=== PATIENT | female | born 1965 | race Caucasian/White ===

== ENCOUNTER 2023-06-20 23:16 | Inpatient (IN) | payer MEDICAID ==
[~2023-06-20] VITALS: Ht 172.7 cm; Wt 72.3 kg
[2023-06-21] MEDS ORDERED: LORazepam 2 MG TABLET PO PRN (00:15)
[2023-06-21] MEDS ORDERED: HALOPERIDOL 5 MG TABLET PO PRN (00:15)
[2023-06-21] MEDS ORDERED: PNEUMOCOCCAL VACCINE POLYVALENT 0.5 ML SYRINGE [PPSV23] IM. ONE (01:30)
[2023-06-21 01:59] VITALS: BP 123/76; PULSE 60; RESP 18; TEMP 97.6
[2023-06-21] MEDS ORDERED: ALBUTEROL SULFATE HFA 90 MCG/PUFF 8 GM INHALER IH PRN (07:15)
[2023-06-21] MEDS ORDERED: MAGNESIUM HYDROXIDE SUSPENSION 30 ML UDCUP PO PRN (07:15)
[2023-06-21] MEDS ORDERED: IBUPROFEN 400 MG TABLET PO PRN (07:15)
[2023-06-21] MEDS ORDERED: ACETAMINOPHEN 325 MG TABLET PO PRN (07:15)
[2023-06-21] MEDS ORDERED: LOPERAMIDE HCL 2 MG CAPSULE PO PRN (07:15)
[2023-06-21] MEDS ORDERED: PETROLATUM,WHITE 28 GM JELLY TP PRN (07:15)
[2023-06-21] MEDS ORDERED: ONDANSETRON HCL 4 MG TABLET PO PRN (07:15)
[2023-06-21] MEDS ORDERED: GuaiFENesin/D-METHORPHAN [SUGAR-FREE] 200-20MG/10 ML SYRUP UDCUP PO PRN (07:15)
[2023-06-21] MEDS ORDERED: CloNIDine HCL 0.1 MG TABLET PO PRN (07:15)
[2023-06-21] MEDS ORDERED: DOCUSATE SODIUM 100 MG CAPSULE PO PRN (07:15)
[2023-06-21] MEDS ORDERED: MAG HYDROX/ALUMINUM HYD/SIMETH ES 30 ML SUSPENSION UDCUP PO PRN (07:15)
[2023-06-21 08:09] VITALS: BP 118/74; PULSE 79; RESP 16; TEMP 98; O2SAT 97
[2023-06-21 20:35] VITALS: BP 97/62; PULSE 76; RESP 18; TEMP 97.6; O2SAT 98
[2023-06-21] MEDS: ESCITALOPRAM OXALATE 10 MG TABLET PO SCH (21:00)
[2023-06-21] MEDS: ZOLPIDEM TARTRATE 10 MG TABLET PO PRN (21:42)
[2023-06-21] MEDS: NICOTINE 21 MG/24 HOUR PATCH TD SCH (21:45)
[2023-06-22 07:47] LABS: BASOPHILS % (AUTO) 0.4 % (0.0-2.0); EOSINOPHILS % (AUTO) 8.9 % (1.0-6.0); HEMATOCRIT 41.3 % (36-46); HEMOGLOBIN 14.2 g/dL (12.0-16.0); LYMPHOCYTES # (AUTO) 2.4 K/uL (1.0-4.8); LYMPHOCYTES % (AUTO) 37.3 % (22.0-44.0); MEAN CORPUSCULAR HEMOGLOBIN 30.9 pg (26.0-34.0); MEAN CORPUSCULAR HGB CONC 34.4 G/dL (31.0-37.0); MEAN CORPUSCULAR VOLUME 90 fL (80-100); MONOCYTES # (AUTO) 0.5 K/uL (0.1-1.0); MONOCYTES % (AUTO) 7.3 % (2.0-9.0); NEUTROPHILS % (AUTO) 46.1 % (40.0-70.0); PLATELET COUNT (AUTO) 183 K/uL (150-450); RED CELL DISTRIBUTION WIDTH 12.6 % (11.5-14.5); WHITE BLOOD COUNT (AUTO) 6.6 K/uL (4.5-11.0)
[2023-06-22 08:14] LABS: ALANINE AMINOTRANSFERASE 12 U/L (12-78); ALKALINE PHOSPHATASE 64 U/L (46-116); ANION GAP 4 mmol/L (8-16); ASPARTATE AMINOTRANSFERASE 14 U/L (15-37); BILIRUBIN,TOTAL 0.5 mg/dL (0.1-1.0); CALCIUM, TOTAL 8.4 mg/dL (8.8-10.5); CARBON DIOXIDE 33 mmol/L (22-29); CHLORIDE 103 mmol/L (98-107); CHOL/HDL RATIO 3.9 (3.9-5.7); CHOLESTEROL 153 mg/dL (131-200); CREATININE 0.78 mg/dL (0.60-1.30); FREE T4 (FREE THYROXINE) 1.18 ng/dL (0.76-1.46); GLOMERULAR FILTR. RATE CALC > 60 mL/min (>60); GLUCOSE,RANDOM 101 mg/dL (70-110); HCG,QUANTITATIVE 3 mIU/mL (0-6); HDL CHOLESTEROL 39 mg/dL (40-60); LDL CHOL (CALC.) 96 mg/dL (0-130); POTASSIUM 3.5 mmol/L (3.5-5.1); SODIUM SERUM 140 mmol/L (136-145); T4 (THYROXINE) 7.4 mcg/dL (4.7-13.3); THYROID STIMULATING HORMONE 1.69 uIU/mL (0.36-3.74); TOTAL PROTEIN, SERUM 6.3 g/dL (6.4-8.2); TRIGLYCERIDES 89 mg/dL (15-150); UREA NITROGEN, BLOOD 11 mg/dL (7-18)
[2023-06-22 08:15] VITALS: BP 108/62; PULSE 73; RESP 16; TEMP 98.2; O2SAT 98
[2023-06-22 08:15] LABS: HEMOGLOBIN A1C 5.5 % (3.8-5.6)
[2023-06-22 22:14] VITALS: BP 97/59; PULSE 54; RESP 17; TEMP 96.6; O2SAT 97
[2023-06-23 08:30] VITALS: BP 110/65; PULSE 73; RESP 16; TEMP 97.8; O2SAT 97
[2023-06-23 20:08] VITALS: BP 100/60; PULSE 55; RESP 19; TEMP 97.6; O2SAT 96
[2023-06-24 10:22] VITALS: BP 102/60; PULSE 61; RESP 16; TEMP 97.7; O2SAT 97
[2023-06-24 21:41] VITALS: BP 116/77; PULSE 70; RESP 16; TEMP 97.8; O2SAT 97
[2023-06-25 08:22] VITALS: RESP 18
[2023-06-25 20:27] VITALS: BP 99/61; PULSE 68; RESP 18; TEMP 97.6; O2SAT 97
[2023-06-26 08:52] VITALS: BP 100/62; PULSE 66; RESP 16; TEMP 97.9; O2SAT 97
[2023-06-26 20:14] VITALS: BP 106/67; PULSE 70; RESP 16; TEMP 97.5; O2SAT 96
[2023-06-27 08:14] VITALS: BP 120/73; PULSE 82; RESP 16; TEMP 97.9; O2SAT 99
[2023-06-27 20:49] VITALS: BP 107/64; PULSE 63; RESP 18; TEMP 98.2; O2SAT 99
[2023-06-28 08:31] VITALS: BP 115/65; PULSE 62; RESP 18; TEMP 97.1; O2SAT 99
[2023-06-28 22:15] VITALS: BP 100/56; PULSE 58; RESP 18; TEMP 97.8; O2SAT 96
[2023-06-29 09:50] VITALS: BP 100/67; PULSE 60; RESP 17; TEMP 98; O2SAT 99
[2023-06-29 20:00] VITALS: BP 112/62; PULSE 74; RESP 18; TEMP 98.1
[2023-06-30 08:17] VITALS: BP 101/61; PULSE 76; RESP 16; TEMP 96.9; O2SAT 97
[2023-06-30 20:17] VITALS: BP 111/70; PULSE 77; RESP 18; TEMP 97.7; O2SAT 95
[2023-07-01 08:19] VITALS: BP 100/65; PULSE 68; RESP 16; TEMP 97.9; O2SAT 98
[2023-07-01 20:18] VITALS: BP 96/60; PULSE 70; RESP 17; TEMP 97.3; O2SAT 98
[2023-07-02 08:08] VITALS: BP 116/66; PULSE 83; RESP 16; TEMP 98.2; O2SAT 99
[2023-07-02 21:37] VITALS: BP 94/64; PULSE 75; RESP 17; TEMP 97.4; O2SAT 98
[2023-07-03 08:33] VITALS: BP 100/59; PULSE 66; RESP 16; TEMP 97.9; O2SAT 98
[2023-07-03] MEDS ORDERED: ESCI-8 PO ×2 (15:03→17:02)
== END 2023-07-03 16:56 | disposition home or self-care (01) | DRG 751 ==
LOC: B3A 06-21 00:31
PROVIDERS: ADMIT Psychiatry & Neurology Child & Adolescent Psychiatry; ATTEND Psychiatry & Neurology Child & Adolescent Psychiatry
PROC: GZHZZZZ Group Psychotherapy (ICD-10-PCS; principal; 2023-06-27)
DX: F33.2 Major depressive disorder, recurrent severe without psychotic features (principal); R45.851 Suicidal ideations; F20.0 Paranoid schizophrenia; F14.90 Cocaine use, unspecified, uncomplicated; F41.9 Anxiety disorder, unspecified; G47.00 Insomnia, unspecified; F17.200 Nicotine dependence, unspecified, uncomplicated; K59.00 Constipation, unspecified
CPT/HCPCS: 80053; 80061; 83036; 84436; 84439; 84443; 84702; 85025